=== PATIENT | female | born 1965 | race Caucasian/White ===

== ENCOUNTER → 2023-12-29 13:51 | Outpatient (REF) | payer OTHER, SELFPAY | LOC: WDC 13:51 | PROVIDERS: ATTENDING PHYSICIAN Obstetrics & Gynecology Gynecology; FAMILY PHYSICIAN Nurse Practitioner Adult Health | DX: Z12.31 Encounter for screening mammogram for malignant neoplasm of breast (principal); Z13.820 Encounter for screening for osteoporosis | CPT/HCPCS: 77063; 77067; 77080 ==

== ENCOUNTER → 2024-02-02 20:51 | Outpatient (REF) | payer OTHER, SELFPAY | LOC: MRI 3T 20:51 | PROVIDERS: ATTENDING PHYSICIAN Physical Medicine & Rehabilitation | DX: M54.2 Cervicalgia (principal) | CPT/HCPCS: 72141 ==

== ENCOUNTER → 2024-05-03 14:45 | Outpatient (REF) | payer OTHER, SELFPAY | LOC: RAD 14:45 | PROVIDERS: ATTENDING PHYSICIAN Nurse Practitioner Adult Health | DX: R05.3 Chronic cough (principal) | CPT/HCPCS: 71046 ==

== ENCOUNTER → 2024-06-18 12:48 | Outpatient (REF) | payer OTHER, SELFPAY | LOC: RAD 12:48 | PROVIDERS: ATTENDING PHYSICIAN Nurse Practitioner Family | DX: M25.522 Pain in left elbow (principal); M25.572 Pain in left ankle and joints of left foot | CPT/HCPCS: 73080; 73610 ==

== ENCOUNTER → 2024-09-04 14:37 | Outpatient (REF) | payer OTHER, SELFPAY | LOC: RAD 14:37 | PROVIDERS: ATTENDING PHYSICIAN Nurse Practitioner Family | DX: M79.644 Pain in right finger(s) (principal) | CPT/HCPCS: 73140 ==

== ENCOUNTER → 2024-12-31 13:57 | Outpatient (REF) | payer OTHER, SELFPAY | LOC: WDC 13:57 | PROVIDERS: ATTENDING PHYSICIAN Obstetrics & Gynecology Gynecology; FAMILY PHYSICIAN Nurse Practitioner Adult Health | DX: Z12.31 Encounter for screening mammogram for malignant neoplasm of breast (principal) | CPT/HCPCS: 77063; 77067 ==

== ENCOUNTER 2025-04-24 21:03 | Observation (INO) | payer OTHER, SELFPAY ==
[2025-04-24 15:00] VITALS: BP 145/100
[2025-04-24 15:34] LABS: Hematocrit 46.6 % (37.0-47.0); Hemoglobin 15.6 g/dL (12.0-16.0); Mean Corp Hgb Conc. 33.5 g/dL (33.0-37.0); Mean Corpuscular Volume 86.0 fL (81.0-99.0); Nucleated Red Blood Cells % 0 %; Platelet Count 304 10^3/uL (130-400); Red Cell Dist. Width 15.0 % (11.5-14.5)
[2025-04-24 15:34] LABS: ALT (SGPT) 17 U/L (0-35); AST (SGOT) 21 U/L (14-36); Albumin 4.7 g/dl (3.5-5.0); Alkaline Phosphatase 82 U/L (38-126); Blood Urea Nitrogen 17 mg/dl (7-17); Calcium 9.3 mg/dl (8.4-10.2); Carbon Dioxide 22 mmol/L (22-30); Chloride 106 mmol/L (98-107); Glucose 105 mg/dl (70-99); Potassium 4.3 mmol/L (3.5-5.1); Sodium 139 mmol/L (135-145); Total Protein 7.7 g/dl (6.3-8.2); eGFR > 60.00
[2025-04-24 15:40] LABS: Urine Character Slightly Cloudy (Clear)
[2025-04-24 16:03] LABS: Urine Red Blood Cell 0-2 /HPF (0-2); Urine White Cell 0-2 /HPF (0-5)
[2025-04-24 16:04] LABS: TSH 1.68 uIU/ml (0.47-4.68)
[2025-04-24 16:44] VITALS: BP 135/93
[2025-04-24 16:45] VITALS: BMI 27.8
--- NOTE | 2025-04-24 17:07 | ED.GENMED ---
History of Present Illness
<Lucy Mares DO, Resident - Last Filed: 04/24/25 23:59>
General
Chief Complaint: Change in Mental Status
Source: patient, significant other and family
Exam Limitations: none
Time Seen by Provider: 04/24/25 16:57
Nursing documentation reviewed up to this point in time: agreed with
History of Present Illness
History of Present Illness:
Patient is a 60-year-old female with past medical history of hypothyroid, presenting with new onset confusion and nausea. Patient is having trouble recalling events starting yesterday. Patient feels like she she remembers being nauseous in the
evening and throwing up. When she woke up this morning she was having trouble remembering anything including recent events, the year etc. Patient's states that this morning the patient said she was throwing up overnight. He advised her to
go back to sleep. Patient then called while at work, crying and very upset that she could not remember anything. Patient sister notes that the patient is having episodes of dissociation asking 'is this real or is this a dream'. Patient
was recently started on Ozempic in November with a 5 pound weight loss. Patient recently received the second shot of her increased dose. Patient is retired, normally spends her free time going on walks and attending Pilates at least twice a week.
Patient is present with and sister. She is very tearful and upset. Patient is tachycardic and has elevated blood pressure.
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
Past History
<Lucy Mares DO, Resident - Last Filed: 04/24/25 23:59>
Past History
ED Past Medical History: Hypothyroidism, Psychiatric and Other (Cervical and lumbar disc disease)
Social History
Tobacco: Non-smoker
Alcohol: None
Drug: None
Personal:
Living: with family
Employment: Retired
Family History
Family History: Other (Noncontributory)
Phy Exam
<Lucy Maers DO, Resident - Last Filed: 04/24/25 23:59>
General Physical Exam
General Presentation: mild distress
General age: appears stated age
General Skin: warm and dry
General Habitus: normal
General Mental: anxious and tearful
Cardiovascular Exam
Cardiovascular Exam: tachycardia
Heart Sounds: normal
Pulmonary Exam
Pulmonary Exam: lungs clear, no respiratory distress, no crackles and no wheezing
Gastrointestinal Exam
Gastrointestinal Exam: normal bowel sounds, non tender and soft
Neurological Exam
Neurological Exam: alert, no sensory deficits, speech normal and confused
Skin Exam
Skin Exam: normal color and warm/dry
Psychiatric Exam
Psychiatric Exam: anxious
Course
<Lucy Mares DO, Resident - Last Filed: 04/24/25 23:59>
Orders/Labs/Results
Orders:
Orders
04/24/25 Dinner
Clear Liquid
04/24/25 15:07
CT Head W/o Iv Contrast Urgent
Comment:
Reason For Exam: change in mental status confusion
04/24/25 15:14
Complete Blood Count/With Diff Urgent
TSH Urgent
Urinalysis Reflex To Culture Urgent
Date Specimen was Collected: 04/24/25
Time Specimen was Collected: 15:06
Urine Microscopic Reflex Cult Urgent
04/24/25 15:15
Alcohol Urgent
Comprehensive Metabolic Panel Urgent
04/24/25 15:16
Add On- LAB Urgent
Tests Added?: alcohol
04/24/25 17:40
0.9% Sodium Chloride 1000 ml [Nss] 1,000 ml IV BOLUS
04/24/25 18:58
Levothyroxine [Synthroid] 100 mcg PO NOW STA
04/24/25 19:00
Ondansetron Injectable [Zofran] 4 mg IV NOW STA
04/24/25 19:40
Paroxetine [Paxil] 20 mg PO NOW STA
04/24/25 20:23
COVID-19 Antigen Urgent
Source: Nasal Swab
Influenza A+B Rapid Molecular Urgent
KAYLYNN Source: Nasal Swab
Specimen Description:
STOOL [C difficile Antigen & Toxins] Routine
KAYLYNN Source: Feces/Stool
Specimen Description:
Stool Culture Routine
KAYLYNN Source: Feces/Stool
Specimen Description:
Stool For WBC Routine
KAYLYNN Source: Feces/Stool
Specimen Description:
04/24/25 20:30
0.9% Sodium Chloride 1000 ml [Nss] 1,000 ml IV 100 mls/hr
04/24/25 20:34
Admit/Transfer Patient As Directed
Co-Sign Provider:
Level of Care: Observation services
Assign to:: Medical/Surgical
Physician / Group: carmencita waller
Diagnosis: Acute gastroenteritis, transient memory loss likely anxiety
Code Status As Directed
Resuscitation Status: Full Code
CR Chest - 2 Views Urgent
Comment:
Reason For Exam: cough leukocytosis
04/24/25 20:36
PRN Pain Medication Management As Directed
May give lesser potent ordered pain med per pt: Yes
preference::
Protocol:: Medication orders for pain may be administered in a
manner that supports deferring to patient preference
when the pt is:
- Requesting an ordered lesser potent pain medication.
Least to most potent pain medications are defined
as: acetaminophen < NSAID < tramadol < opioids
(morphine, oxycodone, hydromorphone).
- Requesting a lesser dose of the same medication IF
ORDERED.
- Requesting a less intrusive route of administration
if both routes are prescribed by the provider (PO <
IV).
04/24/25 21:00
0.9% Sodium Chloride 500 ml [Nss] 500 ml IV 100 mls/hr
04/24/25 21:18
Acetaminophen [Tylenol] 650 mg PO Q4HPRN PRN
Lorazepam [Ativan] 0.5 mg PO Q4HPRN PRN
Ondansetron Injectable [Zofran] 4 mg IV Q6HPRN PRN
04/24/25 21:18
Activity As Directed
Activity Level: As Tolerated
Advance Diet as Tolerated As Directed
Goal Diet: Regular
Pneumatic Compression Sleeves As Directed
Type: Knee high
Vital Signs As Directed
Frequency: Per unit guidelines
DX Deep Vein Thrombosis Video Routine
04/25/25 06:00
Complete Blood Count/With Diff IN AM
Comprehensive Metabolic Panel IN AM
Levothyroxine [Synthroid] 100 mcg PO DAILY @ 0600
04/25/25 08:00
Paroxetine [Paxil] 20 mg PO DAILY
Paroxetine [Paxil] 20 mg PO DAILY
Abnormal Lab Results
04/24/25 04/24/25
15:14 15:15
WBC 16.6 H 10^3/uL
(4.8-10.8)
RBC 5.42 H 10^6/uL
(4.20-5.40)
RDW 15.0 H %
(11.5-14.5)
Abs Immat Gran (auto) 0.1 H 10^3/uL
(0-0.05)
Absolute Neuts (auto) 14.6 H 10^3/uL
(1.4-6.5)
Neutrophils % 87.5 H %
(42.2-75.2)
Lymphocytes % 8.2 L %
(20.5-51.1)
Glucose 105 H mg/dl
(70-99)
Urine Ketones 3+ A
(Negative)
Ur Occult Blood Reflex 3+ A
(Negative)
Urine Bacteria (Reflex) Few A
(Negative)
Urine Albumin (Reflex) 2+ A
(Neg - Trace)
04/24/25 15:14
04/24/25 15:15
Vital Signs
Initial and Last Documented VS:
Initial Vital Signs
Temp Pulse Resp BP Pulse Ox
98.2 F 120 18 145/100 98
04/24/25 15:00 04/24/25 15:00 04/24/25 15:00 04/24/25 15:00 04/24/25 15:00
Last Documented Vital Signs
Temp Pulse Resp BP Pulse Ox
98.0 F 97 18 124/75 97
04/24/25 23:02 04/24/25 23:02 04/24/25 23:02 04/24/25 23:02 04/24/25 23:02
<Linus Best MD - Last Filed: 04/24/25 21:29>
Orders/Labs/Results
Orders:
Orders
04/24/25 Dinner
Clear Liquid
04/24/25 15:07
CT Head W/o Iv Contrast Urgent
Comment:
Reason For Exam: change in mental status confusion
04/24/25 15:14
Complete Blood Count/With Diff Urgent
TSH Urgent
Urinalysis Reflex To Culture Urgent
Date Specimen was Collected: 04/24/25
Time Specimen was Collected: 15:06
Urine Microscopic Reflex Cult Urgent
04/24/25 15:15
Alcohol Urgent
Comprehensive Metabolic Panel Urgent
04/24/25 15:16
Add On- LAB Urgent
Tests Added?: alcohol
04/24/25 17:40
0.9% Sodium Chloride 1000 ml [Nss] 1,000 ml IV BOLUS
04/24/25 18:58
Levothyroxine [Synthroid] 100 mcg PO NOW STA
04/24/25 19:00
Ondansetron Injectable [Zofran] 4 mg IV NOW STA
04/24/25 19:40
Paroxetine [Paxil] 20 mg PO NOW STA
04/24/25 20:23
COVID-19 Antigen Urgent
Source: Nasal Swab
Influenza A+B Rapid Molecular Urgent
KAYLYNN Source: Nasal Swab
Specimen Description:
STOOL [C difficile Antigen & Toxins] Routine
KAYLYNN Source: Feces/Stool
Specimen Description:
Stool Culture Routine
KAYLYNN Source: Feces/Stool
Specimen Description:
Stool For WBC Routine
KAYLYNN Source: Feces/Stool
Specimen Description:
04/24/25 20:30
0.9% Sodium Chloride 1000 ml [Nss] 1,000 ml IV 100 mls/hr
04/24/25 20:34
Admit/Transfer Patient As Directed
Co-Sign Provider:
Level of Care: Observation services
Assign to:: Medical/Surgical
Physician / Group: carmencita waller
Diagnosis: Acute gastroenteritis, transient memory loss likely anxiety
Code Status As Directed
Resuscitation Status: Full Code
CR Chest - 2 Views Urgent
Comment:
Reason For Exam: cough leukocytosis
04/24/25 20:36
PRN Pain Medication Management As Directed
May give lesser potent ordered pain med per pt: Yes
preference::
Protocol:: Medication orders for pain may be administered in a
manner that supports deferring to patient preference
when the pt is:
- Requesting an ordered lesser potent pain medication.
Least to most potent pain medications are defined
as: acetaminophen < NSAID < tramadol < opioids
(morphine, oxycodone, hydromorphone).
- Requesting a lesser dose of the same medication IF
ORDERED.
- Requesting a less intrusive route of administration
if both routes are prescribed by the provider (PO <
IV).
04/24/25 21:00
0.9% Sodium Chloride 500 ml [Nss] 500 ml IV 100 mls/hr
04/24/25 21:18
Acetaminophen [Tylenol] 650 mg PO Q4HPRN PRN
Lorazepam [Ativan] 0.5 mg PO Q4HPRN PRN
Ondansetron Injectable [Zofran] 4 mg IV Q6HPRN PRN
04/24/25 21:18
Activity As Directed
Activity Level: As Tolerated
Advance Diet as Tolerated As Directed
Goal Diet: Regular
Pneumatic Compression Sleeves As Directed
Type: Knee high
Vital Signs As Directed
Frequency: Per unit guidelines
DX Deep Vein Thrombosis Video Routine
04/25/25 06:00
Complete Blood Count/With Diff IN AM
Comprehensive Metabolic Panel IN AM
Levothyroxine [Synthroid] 100 mcg PO DAILY @ 0600
04/25/25 08:00
Paroxetine [Paxil] 20 mg PO DAILY
Paroxetine [Paxil] 20 mg PO DAILY
Abnormal Lab Results
04/24/25 04/24/25
15:14 15:15
WBC 16.6 H 10^3/uL
(4.8-10.8)
RBC 5.42 H 10^6/uL
(4.20-5.40)
RDW 15.0 H %
(11.5-14.5)
Abs Immat Gran (auto) 0.1 H 10^3/uL
(0-0.05)
Absolute Neuts (auto) 14.6 H 10^3/uL
(1.4-6.5)
Neutrophils % 87.5 H %
(42.2-75.2)
Lymphocytes % 8.2 L %
(20.5-51.1)
Glucose 105 H mg/dl
(70-99)
Urine Ketones 3+ A
(Negative)
Ur Occult Blood Reflex 3+ A
(Negative)
Urine Bacteria (Reflex) Few A
(Negative)
Urine Albumin (Reflex) 2+ A
(Neg - Trace)
04/24/25 15:14
04/24/25 15:15
Vital Signs
Initial and Last Documented VS:
Initial Vital Signs
Temp Pulse Resp BP Pulse Ox
98.2 F 120 18 145/100 98
04/24/25 15:00 04/24/25 15:00 04/24/25 15:00 04/24/25 15:00 04/24/25 15:00
Last Documented Vital Signs
Temp Pulse Resp BP Pulse Ox
98.0 F 97 18 124/75 97
04/24/25 23:02 04/24/25 23:02 04/24/25 23:02 04/24/25 23:02 04/24/25 23:02
<Lucy Mares DO, Resident - Last Filed: 04/24/25 23:59>
MDM/Problems Addressed
MDM/Problems Addressed:
CT head showed no acute intracranial abnormality. Gave patient 1 L IV fluids. Patient patient is feeling better and less fluids but still. Confused about the events that have happened over the last 24 hours. Given change in mental status from
baseline and likely dehydration from viral illness, will recommend admission.
<Lucy Mares DO, Resident - Last Filed: 04/24/25 23:59>
*Pulse Oximetry
SaO2: 98
Oxygen Mode of Delivery: Room air
Patient hypoxic: no
*Critical Care Note
Total Time (30-74mins, 75-104mins- exclusive of procedures): Not Applicable
ED Attending Note
<Lucy Mares DO, Resident - Last Filed: 04/24/25 23:59>
-
Portions of this chart may have been created with voice recognition software.� Occasional wrong word or��sound alike� substitutions may have occurred due to the inherent limitations of voice recognition software.
<Linus Best MD - Last Filed: 04/24/25 21:29>
ED Attending Note
Patient seen and examined by attending physician: Yes
ED Attending Note:
Patient with history of hypothyroidism, presents ED secondary to sudden onset of confusion starting this morning. Patient has no recollection of events from yesterday. Patient does recall going to sleep but vomiting on multiple occasions. Upon
waking up in the morning, patient woke up her with concern that she could not remember anything. Patient denies headache. Denies fever or chills. Denies dizziness. Denies blurred vision. Denies loss of sensation or weakness. Denies
difficulty with speech. Of note, recently, her Ozempic dose was increased 2 weeks ago. Denies previous history of similar symptoms.
Physical Exam
General: mild distress, not acutely ill. afebrile
Head: nc/at. eomi
Neck: supple. no meningeal signs.
Heart: s1/s2 regular rate and rhythm
Lungs: no acute respiratory distress. clear bilaterally
Abdomen: normal bowel sounds. not tender.
Neuro: alert and oriented x 3. no focal neurological deficits
Skin: no rash
Psychiatric: well kept. interactive and cooperative
Extremities: no edema. no calf tenderness.
Patient with an unremarkable workup in ED, including blood work and CT head. Pt with possible viral illness triggering vomiting episode, resulting in dehydration with acute mental status change. No focal deficit noted in ED. Will continue IVF
administration and admit for further evaluation and treatment.
Discharge Plan
Departure
Patient Disposition: Admit
Date of Disposition: 04/24/25
Time of Disposition: 19:59
Presentation/result/management discussed w/ accepting MD/DO: Hospitalist
Patient with high blood pressure during this ER visit?: Yes
Discharge Problem:
Altered mental status, Dehydration
Interventions
Interventions:
*Risk Screen - Suicide Last Done: 04/24/25 22:41
*General Assessment Last Done: 04/24/25 16:45
*Neglect/Abuse Screening Last Done: 04/24/25 16:45
*ED COVID-19 Vaccine History Last Done: 04/24/25 22:34
*Nursing Disposition Last Done: 04/24/25 21:29
ED- Neurological Assessment Last Done: 04/24/25 16:45
ED- Cardiac Assessment Last Done: 04/24/25 16:30
ED Swallowing Screen Last Done: 04/24/25 16:30
Discharge Date and Time
Discharge Date/Time: 04/24/25 21:29
[2025-04-24] MEDS: NSS 1000 IV ×2 (18:29→22:12)
--- NOTE | 2025-04-24 20:00 | HPS.HSE ---
Family Physician
-
Family Physician: CASSANDRA Deshpande
Chief Complaint
-
Nausea, vomiting, diarrhea, anxiety, transient memory loss
History of Present Illness
60-year-old female complaining of new onset of confusion with nausea , vomiting and diarrhea overnight. The patient recently received second dose of Ozempic at an increased dose 5 days ago this is her second higher dose. She was throwing up all
night long. She reports to me she remembers going to the bathroom taking a pillow and blanket having vomiting and diarrhea. She does admit to having anxiety especially when nauseous and having to throw up. She is tearful because she cannot
remember all of the details from last night and this a.m. She called her crying and upset at work that she could not remember anything and asking 'is this real or a dream'. She does have past medical history of depression 34
years ago that involved disassociation. She reports having a chronic nonproductive cough since the end of February after a trip to [facility] she also had a recent trip to the [facility] but has been outside swimming no indoor swimming no other sick
contacts. Her friend and at bedside states she is improved after 1 L of IV fluids she does not feel as out of her body and panicked. She was tachycardic and initially hypertensive 145/100 in the ER. She had negative CT head however does
have elevated white blood cell count. She denies fever, chills, sore throat, chest pain, palpitations, cough, shortness of breath, urinary symptoms. She has past medical history of hypothyroidism, depression, with disassociation 34
years ago, anxiety.
Medical History
Past Medical History
Past Medical History: Reports Other
Additional Past Medical History:
hypothyroidism
Anxiety
with disassociation 34 years ago.
Past Surgical History: Reports Other
Additional Past Surgical History:
Lumbar discectomy
Social History
Tobacco: Non-smoker
Alcohol: Occasional
Drug: None
Personal:
Living: With Family ()
Employment: Retired
Family History
Family History: Not pertinent
Allergies / Home Medications
Allergies reflects when Allergies were last updated in [facility].
Home Medications with original date entered in [facility]
Allergy/Medication List:
Allergies
Allergy/AdvReac Type Severity Reaction Status Date / Time
codeine Allergy UPSET Verified 04/24/25 15:05
STOMACH
Home Medications
levothyroxine 100 mcg tablet (Synthroid) 100 mcg PO DAILY 04/24/25
paroxetine HCl 20 mg tablet (Paxil) 20 mg PO DAILY 04/24/25
progesterone micronized 100 mg capsule 100 mg PO HS 04/24/25
semaglutide 1 mg/dose (2 mg/1.5 mL) subcutaneous pen injector 1.7 mg SC QWEEK 04/24/25
Review of Systems
-
History Source: Patient and Family ( and friend at bedside)
A 12 point ROS was completed and negative except as noted: Yes
Constitutional: Reports Other (Transient memory impairment, anxiety tearful); Denies Fever or Fatigue
EENT: Denies Sore Throat or Runny Nose
Respiratory: Reports Cough (Nonproductive); Denies Hemoptysis or Trouble Breathing
Cardiac: Denies Chest Pain, Diaphoresis, Palpitations or Syncope
Abdomen/GI: Reports Nausea, Vomiting and Diarrhea; Denies Abdominal Pain or Constipated
: Denies Dysuria, Frequency, Flank Pain, Incontinence or Difficulty Voiding
Musculoskeletal: Denies Joint Pain or Edema
Skin: Denies Itching or Rash
Neurological: Denies Dizzy, Headache or Weakness
Endocrine: Reports No Symptoms
Hematologic/Lymphatic: Reports No Symptoms
Psych: Reports Anxiety (Tearful)
Physical Exam
Vital Signs
Vital Signs
Temp Pulse Resp BP Pulse Ox
98.2 F 100 22 135/93 98
04/24/25 15:00 04/24/25 16:45 04/24/25 16:45 04/24/25 16:44 04/24/25 17:32
Physical Exam
General: Conversant and Other (Transient memory impairment, anxiety tearful); No Fever or Chills
HEENT: NormoCephalic, Anicteric, Moist mucous membranes, Atraumatic, PERRLA, [place] Conjunctivae and No Ptosis
Respiratory: Clear; No Wheezes, Rales or Rhonchi
Cardiac: S1/S2 and Regular Rhythm; No Murmur, Rub or Gallop
Breast: Deferred by me
GI: Soft, Non Tender, Non Distended, Normal Bowel Sounds and No Hepatosplenomegaly
Rectal: Deferred by Provider
Genito-urinary: Deferred by me
Musculoskeletal: No Clubbing, No Cyanosis and No Edema
Skin: Warm and Dry; No Rash
Neuro: AO x 3, No Motor Deficits, Nonfocal/grossly intact, Cranial Nerves Intact, No Sensory Deficits and Other (Transient memory impairment, anxiety tearful); No Slurred Speech, Facial Droop, Tremors or Sedated
Psych: Anxious (Transient memory impairment, anxiety tearful)
Laboratory Results
-
04/24/25 15:14
04/24/25 15:15
Laboratory Results
Total Bilirubin 1.3 mg/dl (0.2-1.3) 04/24/25 15:15
AST 21 U/L (14-36) 04/24/25 15:15
ALT 17 U/L (0-35) 04/24/25 15:15
Alkaline Phosphatase 82 U/L (38-126) 04/24/25 15:15
Data Reviewed
-
Lab Data: Labs Reviewed by me
Impression/Plan
-
Impression/plan:
Observation MedSurg
#Acute gastroenteritis likely viral possibly secondary to increased Ozempic
1 L IV NSS given in ER
- IV NSS 100 cc an hour
- IV Zofran as needed
- Check stool studies if diarrhea resumes
#Acute leukocytosis/mild confusion likely reactive, confusion likely secondary to anxiety attack
WBC 16.6 with left shift, afebrile 98.2, HR 100
- UA negative, alcohol negative
- Check COVID and flu
- Check chest x-ray
- Ativan as needed
#Anxiety
#History with disassociation 34 years ago
-Continue Paxil 20 mg daily
#Hypothyroidism
TSH normal 1.68
-Continue Synthroid 100 mcg p.o. daily
DVT prophylaxis
SCDs
Full code
[2025-04-24] MEDS: PAXIL 20 MG PO (20:06)
[2025-04-24] MEDS: SYNTHROID 100 MCG PO (20:06)
[2025-04-24] MEDS: NSS 500 IV (20:15)
--- NOTE | 2025-04-24 20:19 | W.PN.UPDATE ---
Update Note
Progress Note Update
Patient seen in conjunction with CASSANDRA. I agree with her findings on history and physical. Concur with assessment and plan.
Briefly, this is a 60-year-old female with past medical history of depression, hypothyroid on levothyroxine, presents to the emergency department with 1 day history of nausea and confusion. Developed N/V/Diarrhea last night and spent the night in
the bathroom. No abdominal pain, fevers or chills. Denies dysuria, flank pain, hematuria or incontinence. Hx of anxiety. Says she does not remember episode overnight and started panicking. Has had episodes of panicking as such in the past. She
is currently A&O x 3. No known sick contacts.
She has not had vomited or had diarrhea or nausea since she's been in ED.
Patient recently started on Ozempic with increased dose six days ago.
Recent trip to [facility] and has been coughing since. No sob.
In the ED she was HD stable with ab of 135/90, 100, 22, 98.2 and satting 96% on RA. Her labs showed leukocytosi fo 16.6 but otherwise normal. cbc, normal electrolytes, normal u/a. CT head is negative.
Assessment and plan
Suspect acute gastroenteritis with episode of dissassociation and anxiety. Some leukocytosis but labs otherwise normal.
- admit to med/surg obs
- IV fluids
- antiemetics
- stool studies if recurrence of diarrhea
- continue her paxil and prn lorazepam
- chest xray to rule out pulmonary infection
- continue levothyroxine
DVT PPX - SCDs
Code status - Full Code
[2025-04-24 21:18] VITALS: BMI 28.4
[2025-04-24 23:02] VITALS: BP 124/75
[2025-04-25 01:07] LABS: COVID-19 Antigen Negative (Negative)
--- NOTE | 2025-04-25 02:20 | PTCARENOTE ---
Pt arrived to unit from ED on stretcher at 2300. Pt ambulated to bed independently. Gait steady. Bed alarm in place & working. Pt reports memory loss associated with night of 04/23. Educated pt on importance of ringing for assistance prior to
ambulating due to this, pt was agreeable & supported reasoning for bed alarm. & sister at bedside, made aware of current plan of care. Pt takes progesterone 100 mg PO HS, family made aware to bring in home medication as we do not carry it.
Bed in lowest position & locked. Patient oriented to unit, call saleh within reach.
[2025-04-25] MEDS: SYNTHROID 100 MCG PO (05:46)
[2025-04-25 06:00] VITALS: BMI 28.4
[2025-04-25 07:00] VITALS: BP 110/70
[2025-04-25] MEDS: NSS 1000 IV (07:38)
[2025-04-25 07:54] LABS: ALT (SGPT) 12 U/L (0-35); AST (SGOT) 20 U/L (14-36); Albumin 3.6 g/dl (3.5-5.0); Alkaline Phosphatase 70 U/L (38-126); Blood Urea Nitrogen 14 mg/dl (7-17); Calcium 7.8 mg/dl (8.4-10.2); Carbon Dioxide 24 mmol/L (22-30); Chloride 110 mmol/L (98-107); Estimated Creatinine Clearance 77 ml/min; Glucose 76 mg/dl (70-99); Potassium 3.8 mmol/L (3.5-5.1); Sodium 138 mmol/L (135-145); Total Protein 6.0 g/dl (6.3-8.2); eGFR > 60.00
[2025-04-25 08:07] LABS: Hematocrit 38.2 % (37.0-47.0); Hemoglobin 12.6 g/dL (12.0-16.0); Mean Corp Hgb Conc. 33.0 g/dL (33.0-37.0); Mean Corpuscular Volume 87.6 fL (81.0-99.0); Nucleated Red Blood Cells % 0 %; Platelet Count 236 10^3/uL (130-400); Red Cell Dist. Width 14.8 % (11.5-14.5)
[2025-04-25] MEDS: PAXIL 20 MG PO (08:15)
[2025-04-25] MEDS: MOTRIN 400 MG PO (08:15)
--- NOTE | 2025-04-25 10:56 | W.PN.HOSP.TC ---
Today's Communication/Plan
-
advance clears to solid
DC if able to tolerate solid
Assessment / Plan
Assessment / Plan
HPI: 60-year-old female with past medical history of depression, hypothyroidism on levothyroxine, presented to the emergency department with 1 day history of nausea and confusion. Developed N/V/D the night prior. No abdominal pain, fevers or chills.
Hx of anxiety. Says she does not remember episode overnight and started panicking. Has had episodes of panicking as such in the past.
No known sick contacts.
She has not had vomiting, diarrhea or nausea since admission.
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
Recent trip to [facility].
A/P:
# Suspect acute viral gastroenteritis with episode of disassociation due to anxiety.
Diarrhea has resolved, now stool soft per pt
Admission leukocytosis improving, can check repeat WBC in 1 week
s/p IV fluids
advance clears to solid, DC if able to tolerate solid
Cont antiemetics PRN
stool studies if recurrence of diarrhea
continue INVENTORY CONTROL COORDINATOR paxil and prn lorazepam
CXR No acute cardiopulmonary abnormality
continue levothyroxine
DVT PPX - SCDs
Code status - Full Code
DW at bedside
Anticipated Discharge: Today
Subjective/Interval History
-
Date of Service: April 25, 2025
Objective Data
-
Labs:
Laboratory Results
04/25/25
06:52
WBC 11.9 H
Hgb 12.6
Hct 38.2
Plt Count 236 D
Sodium 138
Potassium 3.8
Chloride 110 H
Carbon Dioxide 24
BUN 14
Creatinine 0.7
Glucose 76
Calcium 7.8 L D
Total Bilirubin 1.2
AST 20
ALT 12
Alkaline Phosphatase 70
Vital Signs:
Vital Signs
Temp Pulse Resp BP Pulse Ox
36.6 C 94 20 110/70 94
04/25/25 07:00 04/25/25 07:00 04/25/25 07:00 04/25/25 07:00 04/25/25 08:00
I&O
04/24/25 04/25/25 04/26/25
06:59 06:59 06:59
Intake Total 833 / 833
Balance 833 / 833
Review of Systems
-
All other systems: Reviewed and negative
Abdomen/GI: Denies Abdominal Pain, Nausea, Vomiting or Diarrhea
Physical Exam
-
General: Well Developed, Well Nourished, No Apparent Distress, Comfortable and Conversant; Negative Respiratory Distress
HEENT: Normocephalic, Atraumatic, Nose Appears Normal and Ears Appear Normal; Negative Oxygen
Respiratory: Clear to Auscultation and Non Labored Respirations; Negative Accessory Resp Muscle Use
Cardiac: Regular Rhythm and S1/S2
GI: Soft, Nontender, Nondistended and Normal Bowel Sounds
Skin: Warm and Dry
Neuro: Awake, Alert, Oriented and AO x 3
Psych: Calm and Intact Judgement/Insight
Data Reviewed
-
Labs: Labs Reviewed by me
--- NOTE | 2025-04-25 11:06 | CM ---
Addendum entered by Gregorio Christensen 04/25/25 15:24:
Discharge order noted.
Both pt and her are aware.
No after care VN servcies indicated.
D/c plan: home with no needs. to transport
Original Note:
CM following re: discharge planning.
Reviewed pt's chart, met with pt and pt's spouse at bedside.
Pt is a 60 year old female, admitted with OBS status and primary concerns of nausea, vomiting and memory loss. OBS status explained to the pt, pt expressed her understanding, OBS letter signed, placed on chart, pt has a copy.
Pt reports she lives with 2SH, 2 steps to enter, has 2 supportive children. pt described herself as independent in all areas [employer], drives. No ME, VN or SNF history.
PCP: Alanna Jha
Pharmacy: [facility]
D/c plan: home with anticipated no needs. to transport at discharge.
CM will follow with discharge plan updates as hospitalization progresses
--- NOTE | 2025-04-25 14:51 | W.DCSUMMARY ---
Discharge Summary
Discharge Data
Date of Admission: 04/24/25
Date of Discharge: 04/25/25
Total time spent discharging patient (in min): 40
-
Pending Results: No
Hospital Course
Principal Diagnosis:
Suspect acute viral gastroenteritis with Resolved confusion likely due to vasovagal versus anxiety.
Chronic Diagnoses:�
Depression
Hypothyroidism on levothyroxine
Consultations:�
None
Procedures:�
None
Clinical course:�
This is a 60-year-old female with past medical history as stated above, who presented with 1 day history of nausea, vomiting, diarrhea, with associated confusion.
Problem 1:
Suspect acute viral gastroenteritis with resolved confusion likely due to vasovagal event versus anxiety.
Her GI symptoms (nausea, vomiting, diarrhea) have much resolved during her hospital stay.
She has not had any bowel movement for stool test.
Her diet was advanced to solid which she tolerated well prior to discharge.
She can continue to take probiotic going forward.
As for the rest of her medical problems, they were stable during her hospital stay.
Discharge Plan
-
Patient Disposition: Home (Routine Discharge)
Discharge Diagnosis/Procedures: diarrhea likely acute viral gastroenteritis (resolving)
Condition: Good
Diet: As tolerated
Activity: As tolerated
Driving Restrictions: As prior to admission
Blood Work: CBC in 1 week with your PCP
Referrals:
Alanna Jha CRNP [Family Provider, Internal Medicine] - in less than 1 week
Prescriptions:
New
Probiotic 3 billion cell capsule
3,000 mmu cells PO DAILY Qty: 30 0RF
(DME) CBC without differential
See Rx Instructions .Route .MEDSUPPLY Qty: 1 0RF
Rx Instructions:
CBC without differential in 1 week with your PCP
# viral gastroenteritis
(DME) BMP
See Rx Instructions .Route .MEDSUPPLY Qty: 1 0RF
Rx Instructions:
BMP in 1 week with your PCP
# viral gastroenteritis
Continued
levothyroxine [Synthroid] 100 mcg Tablet
100 mcg PO DAILY
paroxetine HCl [Paxil] 20 mg Tablet
20 mg PO DAILY
semaglutide 1 mg/dose (2 mg/1.5 mL) Pen Injector
1.7 mg SC QWEEK
progesterone micronized 100 mg Capsule
100 mg PO HS
Discharge Orders:
Discharge Patient (As Directed); Ordered 04/25/25
Ordered By: Pippa Lynn
Discharge Date and Time
Print Language: ITALIAN
[2025-04-25 15:00] VITALS: BP 101/55
== END 2025-04-25 17:08 | disposition home or self-care (01) ==
LOC: 2 NORTH 21:03
PROVIDERS: Clinical Nurse Specialist Family Health; Emergency Medicine; ADMITTING PHYSICIAN Internal Medicine; ATTENDING PHYSICIAN Internal Medicine; EMERGENCY PHYSICIAN Emergency Medicine; FAMILY PHYSICIAN Nurse Practitioner Adult Health
DX: R19.7 Diarrhea, unspecified (principal); R11.2 Nausea with vomiting, unspecified; R41.82 Altered mental status, unspecified; E03.9 Hypothyroidism, unspecified; I10 Essential (primary) hypertension; R00.0 Tachycardia, unspecified; F32.A Depression, unspecified; D72.829 Elevated white blood cell count, unspecified; E86.0 Dehydration; F41.9 Anxiety disorder, unspecified; R41.3 Other amnesia; Z79.85 Long-term (current) use of injectable non-insulin antidiabetic drugs; Z88.5 Allergy status to narcotic agent; Z79.890 Hormone replacement therapy; Z79.899 Other long term (current) drug therapy; Z11.52 Encounter for screening for COVID-19
CPT/HCPCS: 70450; 71046; 80053; 81003; 81015; 82077; 84443; 85025; 87502; 87811; 96360; 96361; 99285; G0378